=== PATIENT | male | born 1985 | race African-American/Black ===

== ENCOUNTER 2018-01-19 13:45 | Emergency (ER) | payer OTHER, SELFPAY ==
[2018-01-19 13:50] VITALS: BP 131/86; PULSE 95; RESP 16; TEMP 36.7; O2SAT 96
--- NOTE | 2018-01-19 14:29 | W.ED.GENAD ---
Discharge Plan Disposition Patient Disposition: HOME Condition: Stable Discharge Details Chief Complaint: Laceration Clinical Impression: Laceration of leg, left Primary Care Provider: MING,LOCAL ED Provider: Tammi Neumann Home Meds and New Rx's Prescriptions: No Action No Known Home Meds RF: 0 Discharge Instructions Instructions: Laceration (ED) Additional Instructions: Keep wound clean, dry and covered. You can keep wound open to air if you know year to be resting at home with no signs of contamination. Cover with Band-Aid if any risk of contamination or accidental suture displacement. Return to the emergency department in 7 days for suture removal. To the wound with any signs of redness or swelling. Return immediately to the emergency department if you develop any fever, red streaking or significant signs of infection. Discharge Data Discharge Date/Time-TO BE ENTERED AT DEPARTURE: 01/19/18 17:20 Discharge Physician: Tammi Neumann Medical Decision Making 32-year-old male who presents with left lower leg laceration sustained after accidentally cut with axe at home while cutting wood 2 hours ago. Last tetanus 2010. Laceration appears linear and regular and no obvious foreign body, open fracture, or deformity. Wound does not appear dirty, no obvious contamination or foreign body particles. No focal deficits. Will give her a Boostrix here due to likely contamination of wound from axe. Will irrigate wound and send for left tib-fib x-ray to rule out foreign body. Pt declines medication for pain. 1630 --x-ray negative for fracture or foreign body. Wound closed with 4 subQ Vicryl and 11 nylon sutures. Bacitracin and nonadherent dressing placed. Patient instructed on the importance of keeping wound clean and covered. Instructed to return to the ED in 7 days for suture removal. Instructed to apply Neosporin with any signs of redness or pain. He was instructed to return immediately to the emergency department with any fever, red streaking or any worsening signs of infection. HPI General Mode of arrival: wheelchair. Date/Time Provider Initiated Documentation: 01/19/18 13:57. Limitations to Documentation: no limitations. Information obtained by: patient. HPI Narrative: Patient is a 32-year-old male presents with left leg laceration sustained at home while cutting wood with an ax. Patient states the ask slipped and hit him directly in his left lower leg. States his last tetanus 2010. He denies any other injuries. Past medical history: None Surgical history: Hernia repair Social history: Quit tobacco, occasional alcohol use, denies drugs Medications: None Allergies: None Related Data Home Medications Medication Instructions Recorded Confirmed Unknown [No Known Home Meds] 01/19/18 01/19/18 Allergies Allergy/AdvReac Type Severity Reaction Status Date / Time venom-honey bee Allergy Severe Anaphylaxsi Unverified 10/29/15 17:43 [bee venom (honey bee)] s ant Allergy Intermediate swelling/ti Uncoded 10/29/15 17:43 ngling General Stated Complaint: Laceration SILKE: 4 Review of Systems Review of Systems All systems reviewed & are unremarkable except as noted in HPI and below PFSH Social History Smoking/Tobacco Use Status: Former Tobacco Use Exam Const General: cooperative and healthy appearing Orientation: alert and awake HENMT Head: normal to inspection Ears: hearing grossly normal bilaterally and external ears normal General nose exam: external nose normal Face and sinus: normal facial exam Eyes General: appearance normal, both eyes and all related structures Eyelids: eyelids normal EOM: EOM intact bilaterally Neck Neck: normal visual inspection Resp Effort & Inspection: normal respiratory effort and able to speak in complete sentences Cardio Rate: regular rate Skin General skin exam: no rashes or lesions noted Neuro General: alert and awake Cognition: normal cognition Speech: speech normal Gait: normal gait Motor: muscle tone normal throughout and strength 5/5 throughout Sensory Exam: no sensory deficits noted Extrem General: full ROM and normal capillary refill Left lower extremity: lower leg (4 cm straight laceration extending through subcutaneous tissue noted on left medial distal lower leg. Mild active oozing. No obvious foreign bodies noted.) Other: Normal range of motion noted at left hip, left knee, left ankle and foot. No deformity noted. Left DP/PT pulses intact. Psych Appearance: grossly normal Mental Status: mental status grossly normal Speech and Movement: speech and movement normal Affect: normal affect Thought Process: normal Course Vital Signs Temperature 98.1 F 01/19/18 13:50 Pulse 95 H 01/19/18 13:50 Respiratory Rate 16 01/19/18 13:50 Blood Pressure 131/86 01/19/18 13:50 Pulse Oximetry 96 01/19/18 13:50 Temperature 98.1 F 01/19/18 13:50 Temperature Source Temporal Artery Scan 01/19/18 13:50 Pulse 95 H 01/19/18 13:50 Respiratory Rate 16 01/19/18 13:50 Blood Pressure 131/86 01/19/18 13:50 Pulse Oximetry 96 01/19/18 13:50 Oxygen Delivery Method Room Air 01/19/18 13:50 Oxygen Flow Rate 0 01/19/18 13:50 Pain Level 3 01/19/18 13:50 Procedures Laceration Laceration 1: Site: lower extremity Side (If applicable): left Size (cm): 4 Description: linear Local Anesthetic: Lidocaine 1% Amount of anesthesia used (mL): 25 Pre-repair: wound explored, irrigated extensively and deep structures intact Skin layer closed with: nylon Size (cm): 5-0 Number of sutures: 11 Technique: simple, interrupted Size: 5-0 Number of sutures: 4 Technique: simple, interrupted
--- NOTE | 2018-01-19 14:35 | DI.RAD_ITS ---
SYMPTOMS/DIAGNOSIS: S/P AX TO LEFT LOWER LEG, ? ACUTE FRACTURE VERSUS FOREIGN BODY LEFT LEG: Three views were obtained. No fracture is seen.
--- NOTE | 2018-01-19 15:06 | ED.GENADUL_ITS ---
Discharge Plan Disposition Patient Disposition: HOME Condition: Stable Discharge Details Chief Complaint: Laceration Clinical Impression: Laceration of leg, left Primary Care Provider: MING,LOCAL ED Provider: Tammi Neumann Home Meds and New Rx's Prescriptions: No Action No Known Home Meds RF: 0 Discharge Instructions Instructions: Laceration (ED) Additional Instructions: Keep wound clean, dry and covered. You can keep wound open to air if you know year to be resting at home with no signs of contamination. Cover with Band-Aid if any risk of contamination or accidental suture displacement. Return to the emergency department in 7 days for suture removal. To the wound with any signs of redness or swelling. Return immediately to the emergency department if you develop any fever, red streaking or significant signs of infection. Discharge Data Discharge Date/Time-TO BE ENTERED AT DEPARTURE: 01/19/18 17:20 Discharge Physician: Tammi Neumann Medical Decision Making 32-year-old male who presents with left lower leg laceration sustained after accidentally cut with axe at home while cutting wood 2 hours ago. Last tetanus 2010. Laceration appears linear and regular and no obvious foreign body, open fracture , or deformity. Wound does not appear dirty, no obvious contamination or foreign body particles. No focal deficits. Will give her a Boostrix here due to likely contamination of wound from axe. Will irrigate wound and send for left tib-fib x-ray to rule out foreign body. Pt declines medication for pain. 1630 --x-ray negative for fracture or foreign body. Wound closed with 4 subQ Vicryl and 11 nylon sutures. Bacitracin and nonadherent dressing placed. Patient instructed on the importance of keeping wound clean and covered. Instructed to return to the ED in 7 days for suture removal. Instructed to apply Neosporin with any signs of redness or pain. He was instructed to return immediately to the emergency department with any fever , red streaking or any worsening signs of infection. HPI General Mode of arrival: wheelchair . Date/Time Provider Initiated Documentation: 01/19/18 13:57 . Limitations to Documentation: no limitations . Information obtained by: patient . HPI Narrative: Patient is a 32-year-old male presents with left leg laceration sustained at home while cutting wood with an ax. Patient states the ask slipped and hit him directly in his left lower leg. States his last tetanus 2010. He denies any other injuries. Past medical history: None Surgical history: Hernia repair Social history: Quit tobacco, occasional alcohol use, denies drugs Medications: None Allergies: None Related Data Home Medications Medication Instructions Recorded Confirmed Unknown [No Known Home Meds] 01/19/18 01/19/18 Allergies Allergy/AdvReac Type Severity Reaction Status Date / Time venom-honey bee Allergy Severe Anaphylaxsi Unverified 10/29/15 17:43 [bee venom (honey bee)] s ant Allergy Intermediate swelling/ti Uncoded 10/29/15 17:43 ngling General Stated Complaint: Laceration SILKE: 4 Review of Systems Review of Systems All systems reviewed & are unremarkable except as noted in HPI and below PFSH Social History Smoking/Tobacco Use Status: Former Tobacco Use Exam Const General: cooperative and healthy appearing Orientation: alert and awake HENMT Head: normal to inspection Ears: hearing grossly normal bilaterally and external ears normal General nose exam: external nose normal Face and sinus: normal facial exam Eyes General: appearance normal, both eyes and all related structures Eyelids: eyelids normal EOM: EOM intact bilaterally Neck Neck: normal visual inspection Resp Effort & Inspection: normal respiratory effort and able to speak in complete sentences Cardio Rate: regular rate Skin General skin exam: no rashes or lesions noted Neuro General: alert and awake Cognition: normal cognition Speech: speech normal Gait: normal gait Motor: muscle tone normal throughout and strength 5/5 throughout Sensory Exam: no sensory deficits noted Extrem General: full ROM and normal capillary refill Left lower extremity: lower leg (4 cm straight laceration extending through subcutaneous tissue noted on left medial distal lower leg. Mild active oozing. No obvious foreign bodies noted.) Other: Normal range of motion noted at left hip, left knee, left ankle and foot. No deformity noted. Left DP/PT pulses intact. Psych Appearance: grossly normal Mental Status: mental status grossly normal Speech and Movement: speech and movement normal Affect: normal affect Thought Process: normal Course Vital Signs Temperature 98.1 F 01/19/18 13:50 Pulse 95 H 01/19/18 13:50 Respiratory Rate 16 01/19/18 13:50 Blood Pressure 131/86 01/19/18 13:50 Pulse Oximetry 96 01/19/18 13:50 Temperature 98.1 F 01/19/18 13:50 Temperature Source Temporal Artery Scan 01/19/18 13:50 Pulse 95 H 01/19/18 13:50 Respiratory Rate 16 01/19/18 13:50 Blood Pressure 131/86 01/19/18 13:50 Pulse Oximetry 96 01/19/18 13:50 Oxygen Delivery Method Room Air 01/19/18 13:50 Oxygen Flow Rate 0 01/19/18 13:50 Pain Level 3 01/19/18 13:50 Procedures Laceration Laceration 1: Site: lower extremity Side (If applicable): left Size (cm): 4 Description: linear Local Anesthetic: Lidocaine 1% Amount of anesthesia used (mL): 25 Pre-repair: wound explored, irrigated extensively and deep structures intact Skin layer closed with: nylon Size (cm): 5-0 Number of sutures: 11 Technique: simple, interrupted Size: 5-0 Number of sutures: 4 Technique: simple, interrupted
--- NOTE | 2018-01-19 15:19 | DI.VRAD_ITS ---
EXAM: XR Left Tibia and Fibula, 2 Views EXAM DATE/TIME: 01/19/2018 2:44 PM CLINICAL HISTORY: 32 years old, male; Pain; Lower leg; Left; Patient HX: S/P axe to left lower leg. TECHNIQUE: XR Left tibia and fibula 2 views COMPARISON: No relevant prior studies available. FINDINGS: Bones/joints: Normal. Soft tissues: Normal. IMPRESSION: No evidence for fracture. COMMENT: Preliminary interpretation is based on receipt of 3 image(s). A final report will be issued subsequently. Dictated and Authenticated by: Cassandra Ott MD. Ordering:LAN ABDUL MD
== END 2018-01-19 17:20 | disposition home or self-care (01) ==
PROVIDERS: Emergency Provider Physician Assistant
DX: S81.812A Laceration without foreign body, left lower leg, initial encounter (principal); W27.0XXA Contact with workbench tool, initial encounter
CPT/HCPCS: 12002; 90471; 73590

== ENCOUNTER 2018-01-27 11:26 | Emergency (ER) | payer OTHER, SELFPAY ==
[2018-01-27 11:29] VITALS: PULSE 98; RESP 18; TEMP 36.7; O2SAT 97
[2018-01-27 11:34] VITALS: BP 134/89
--- NOTE | 2018-01-27 11:39 | W.ED.GENAD ---
Discharge Plan Disposition Patient Disposition: HOME Condition: Improving Discharge Details Chief Complaint: SutureRem Clinical Impression: Encounter for removal of sutures Primary Care Provider: MING,LOCAL ED Midlevel Provider: Gin Leon ED Provider: Todd Delgado Home Meds and New Rx's Prescriptions: No Action No Known Home Meds RF: 0 Discharge Instructions Additional Instructions: Return if you develop redness, fever, or any other acute concerns. May remove Steri-Strips in 4-5 days time. Medical Decision Making 32-year-old male presents for suture removal of left distal pretibial laceration suffered 8 days ago. No evidence of infection. Sutures removed and Steri-Strips placed. He will Steri-Strips in place for 4-5 days, return for any acute concerns. Stable and appropriate for discharge to home. Please note: 'Gin Leon' was added as ED provider for this visit by EMR. This is not the case HPI General Mode of arrival: ambulatory. Date/Time Provider Initiated Documentation: 01/27/18 11:32. Limitations to Documentation: no limitations. Information obtained by: patient. History of Present Illness 32 year old M presents to the emergency department with the chief complaint of Left leg suture removal, Patient notes no other symptoms.. Related Data Home Medications Medication Instructions Recorded Confirmed Unknown [No Known Home Meds] 01/19/18 01/19/18 Allergies Allergy/AdvReac Type Severity Reaction Status Date / Time venom-honey bee Allergy Severe Anaphylaxsi Unverified 01/27/18 11:32 [bee venom (honey bee)] s ant Allergy Intermediate swelling/ti Uncoded 01/27/18 11:32 ngling General Stated Complaint: SutureRem SILKE: 5 Exam Narrative Exam Narrative: GEN: awake, alert, oriented 3. Pleasant, well groomed, interactive. HEAD: Normocephalic, atraumatic EXT: Full ROM, no edema, no rash. The left anterior tibia has distal anterior healing laceration with good wound approximation, no surrounding erythema, no discharge. Interrupted sutures present. Psych: Speech fluent, thoughts congruent, affect normal Course Vital Signs Temperature 36.7 C 01/27/18 11:29 Pulse 98 H 01/27/18 11:29 Respiratory Rate 18 01/27/18 11:29 Pulse Oximetry 97 01/27/18 11:29 Temperature 36.7 C 01/27/18 11:29 Temperature Source Skin 01/27/18 11:29 Pulse 98 H 01/27/18 11:29 Respiratory Rate 18 01/27/18 11:29 Respiratory Effort Non-Labored 01/27/18 11:31 Blood Pressure 134/89 01/27/18 11:34 Pulse Oximetry 97 01/27/18 11:29 Pain Level 1 01/27/18 11:29
--- NOTE | 2018-01-27 11:42 | ED.GENADUL_ITS ---
Discharge Plan Disposition Patient Disposition: HOME Condition: Improving Discharge Details Chief Complaint: SutureRem Clinical Impression: Encounter for removal of sutures Primary Care Provider: MING,LOCAL ED Midlevel Provider: Gin Leon ED Provider: Todd Delgado Home Meds and New Rx's Prescriptions: No Action No Known Home Meds RF: 0 Discharge Instructions Additional Instructions: Return if you develop redness, fever, or any other acute concerns. May remove Steri-Strips in 4-5 days time. Medical Decision Making 32-year-old male presents for suture removal of left distal pretibial laceration suffered 8 days ago. No evidence of infection. Sutures removed and Steri-Strips placed. He will Steri-Strips in place for 4-5 days, return for any acute concerns. Stable and appropriate for discharge to home. Please note: 'Gin Leon' was added as ED provider for this visit by EMR. This is not the case HPI General Mode of arrival: ambulatory . Date/Time Provider Initiated Documentation: 01/27/18 11:32 . Limitations to Documentation: no limitations . Information obtained by: patient . History of Present Illness 32 year old M presents to the emergency department with the chief complaint of Left leg suture removal, Patient notes no other symptoms.. Related Data Home Medications Medication Instructions Recorded Confirmed Unknown [No Known Home Meds] 01/19/18 01/19/18 Allergies Allergy/AdvReac Type Severity Reaction Status Date / Time venom-honey bee Allergy Severe Anaphylaxsi Unverified 01/27/18 11:32 [bee venom (honey bee)] s ant Allergy Intermediate swelling/ti Uncoded 01/27/18 11:32 ngling General Stated Complaint: SutureRem SILKE: 5 Exam Narrative Exam Narrative: GEN: awake, alert, oriented 3. Pleasant, well groomed, interactive. HEAD: Normocephalic, atraumatic EXT: Full ROM, no edema, no rash. The left anterior tibia has distal anterior healing laceration with good wound approximation, no surrounding erythema, no discharge. Interrupted sutures present. Psych: Speech fluent, thoughts congruent, affect normal Course Vital Signs Temperature 36.7 C 01/27/18 11:29 Pulse 98 H 01/27/18 11:29 Respiratory Rate 18 01/27/18 11:29 Pulse Oximetry 97 01/27/18 11:29 Temperature 36.7 C 01/27/18 11:29 Temperature Source Skin 01/27/18 11:29 Pulse 98 H 01/27/18 11:29 Respiratory Rate 18 01/27/18 11:29 Respiratory Effort Non-Labored 01/27/18 11:31 Blood Pressure 134/89 01/27/18 11:34 Pulse Oximetry 97 01/27/18 11:29 Pain Level 1 01/27/18 11:29
== END 2018-01-27 11:48 | disposition home or self-care (01) ==
PROVIDERS: Emergency Provider Emergency Medicine
DX: S81.812D Laceration without foreign body, left lower leg, subsequent encounter (principal); W27.0XXD Contact with workbench tool, subsequent encounter; Z48.02 Encounter for removal of sutures

== ENCOUNTER 2018-12-30 10:48 | Outpatient (CLI) | payer OTHER, SELFPAY ==
--- NOTE | 2018-12-30 15:27 | DI.RAD_ITS ---
EXAM: XR KNEE RT 3V AP,LAT,PEPE INDICATION: FALL 5 MONTHS AGO, PAIN RT KNEE [id number]. COMPARISON: No exams were available for comparison TECHNIQUE: 2D digital imaging was performed. FINDINGS: The bony structures are normally mineralized, joint spaces intact. There is no evidence of a joint ef fusion. Soft tissue swelling is identified anterior to the knee.
== END 2018-12-30 11:08 ==
PROVIDERS: Visit Provider Physician Assistant Medical
DX: M25.561 Pain in right knee (principal)
CPT/HCPCS: 73562

== ENCOUNTER 2022-01-27 14:30 | Outpatient (REF) | payer OTHER, SELFPAY ==
[2022-01-27 15:12] LABS: Abs Immature Grans 0.01 10^3/uL (0.0-0.06); Absolute Basophil Count 0.03 10^3/uL (0.0-0.2); Absolute Eosinophil Count 0.07 10^3/uL (0.0-0.7); Absolute Lymphocyte Count 2.49 10^3/uL (1.2-3.4); Absolute Monocyte Count 0.36 10^3/uL (0.1-0.8); Absolute Neutrophil Count 3.16 10^3/uL (1.2-6.7); Basophils % 0.5; Eosinophils % 1.1; HCT 44.5 % (40.0-50.0); HGB 14.3 g/dL (13.5-17.5); Immature Grans % 0.2; Lymphocytes % 40.7; MCH 26.9 pg (27.0-33.0); MCHC 32.1 % (32.0-36.0); MCV 84 fL (80-95); MPV 9.9 fL (8.0-11.0); Monocytes % 5.9; Neutrophils % 51.6; Platelet Count 448 10^3/uL (130-400); RBC 5.31 10^6/uL (4.36-5.78); RDW 14.6 % (11.8-14.1); RDW-SD 44.7 fL; WBC 6.12 10^3/uL (4.4-10.8)
[2022-01-27 16:00] LABS: ALT 40 U/L (16-63); AST 19 U/L (15-37); Albumin 4.3 g/dL (3.4-5.0); Alkaline Phosphatase 45 U/L (46-116); Anion Gap 9.2 mmol/L (3-11); BUN 17 mg/dL (7-18); Bilirubin, Total 0.3 mg/dL (0.2-1.0); CO2 27.8 mmol/L (21.0-32.0); CREATININE 1.2 mg/dL (0.70-1.30); Calcium 9.8 mg/dL (8.5-10.1); Chloride 102 mmol/L (98-107); Estimated GFR 79.38 (mL/min/1.73m2); Glucose 90 mg/dL (74-106); Potassium 4.8 mmol/L (3.5-5.1); Sodium 139 mmol/L (136-145); Total Protein 8.3 g/dL (6.4-8.2)
== END 2022-01-27 14:31 | disposition home or self-care (01) ==
LOC: LBN 14:30
PROVIDERS: Visit Provider Physician Assistant Medical
DX: R10.9 Unspecified abdominal pain (principal)
CPT/HCPCS: 80053; 85025